=== PATIENT | male | born 1970 ===

== ENCOUNTER 2023-03-14 13:09 | Outpatient (CLI) | payer MEDICAID, OTHER | END 2023-03-14 13:10 | disposition EMS.NT | LOC: EMS 13:09 | DX: S01.111A Laceration without foreign body of right eyelid and periocular area, initial encounter (principal); S51.011A Laceration without foreign body of right elbow, initial encounter; M79.89 Other specified soft tissue disorders; M25.521 Pain in right elbow; Y04.2XXA Assault by strike against or bumped into by another person, initial encounter; Y92.414 Local residential or business street as the place of occurrence of the external cause; R56.9 Unspecified convulsions; Y99.9 Unspecified external cause status ==